=== PATIENT | male | born 1990 | race Caucasian/White ===

== ENCOUNTER 2017-02-22 11:20 | Emergency (ER) | payer OTHER ==
[~2017-02-22 11:20] MED LIST: ADDERALL PO; ASPIRIN81 MG PO; CLEOCIN HCL300 M1 PO; HUMALOG100 U/M2 SUBQ; HUMALOG100 U/ML SUBQ; LANTUS SOLOSTAR3 ML SUBQ; LANTUS100 U/ML SQ; LANTUS100 U/ML SUBQ; LANTUS100 UNITS/ SUBQ; LISINOPRIL10 MG PO; MAG-OXIDE400 MG PO; ZESTRIL2.5 MG PO; ZOFRAN ODT4 MG PO; [UNRECOGNIZED DRUG - OTHER]
[2017-02-22 12:22] LABS: ARTERIAL BLD GAS O2 SATURATION 77.8 % (90.0-100.0); ARTERIAL BLOOD GAS CARBOXY HB 1.1 %sat (0.0-9.0); ARTERIAL BLOOD GAS HCO3 20.1 mmol/L; ARTERIAL BLOOD GAS MET HB 0.7 %sat (0.0-2.0); ARTERIAL BLOOD GAS PCO2 35.1 mmHg (35.0-45.0); ARTERIAL BLOOD GAS pH 7.367 (7.350-7.450)
[2017-02-22 12:24] LABS: ARTERIAL BLOOD GAS PO2 39.2 mmHg (80.0-100); ARTERIAL DRAW? NO
[2017-02-22 12:37] LABS: BASOPHIL# 0.1 X10e3 (0-0.3); BASOPHIL% 1.2 % (0-2.5); EOSINOPHIL# 0.1 X10e3 (0-0.7); EOSINOPHIL% 0.8 % (0.0-7.0); HEMATOCRIT 48.9 % (38.0-50.0); HEMOGLOBIN 16.1 gm/dL (13.0-16.0); LYMPHOCYTE# 3.5 X10e3 (1.0-3.5); LYMPHOCYTE% 35.6 % (17.0-45.0); MEAN CELL VOLUME 86.3 FL (83-96); MEAN CORPUSCULAR HEMOGLOBIN 28.4 PG (28-34); MEAN CORPUSCULAR HGB CONC 32.9 g/dL (30-36); MEAN PLATELET VOLUME 10.5 FL (6.5-11.5); MONOCYTE# 0.9 X10e3 (0-1.0); MONOCYTE% 9.1 % (3.0-12.0); NEUTROPHIL# 5.2 X10e3 (1.5-7.1); NEUTROPHIL% 53.3 % (40-75); PLATELET COUNT 256 X10e3 (140-420); RED BLOOD COUNT 5.67 X10e (3.90-5.60); RED CELL DISTRIBUTION WIDTH 13.5 % (11.0-15.5); WHITE BLOOD COUNT 9.8 X10e3 (4.0-10.5)
[2017-02-22 12:40] LABS: DIFF IND NO
[2017-02-22 13:10] LABS: ALBUMIN SERUM 4.7 g/dL (3.5-5.0); BETA HYDROXYBUTYRATE 2.58 MMOL/L (0.02-0.27); BILIRUBIN, DIRECT 0.2 mg/dL (0.0-0.2); BILIRUBIN,TOTAL 2.2 mg/dL (0.2-2.0); CALCIUM SERUM 9.9 mg/dL (8.4-10.2); CREATININE SERUM 0.8 mg/dL (0.6-1.4); GLOM FILT RATE Estimated 125.1 mL/min (>60); PROTEIN TOTAL SERUM 7.9 g/dL (6.0-8.3)
[2017-02-22 14:48] LABS: URINE SOURCE CLEAN CATCH
[2017-02-22 14:56] LABS: URINE APPEARANCE CLEAR; URINE BILIRUBIN NEG (NEG); URINE BLOOD NEG (NEG); URINE COLOR YELLOW; URINE GLUCOSE >1000 MG/DL (NEG); URINE KETONE 3+ (NEG); URINE LEUKOCYTE ESTERASE NEG (NEG); URINE NITRATE NEG (NEG); URINE PROTEIN NEG (NEG); URINE SPECIFIC GRAVITY 1.032 (1.003-1.035)
[2017-02-22 15:03] LABS: CULTURE INDICATED? NO
== END 2017-02-22 15:40 | disposition home or self-care (01) ==
LOC: CED 11:20
PROVIDERS: Emergency Medicine
DX: R11.2 Nausea with vomiting, unspecified (principal); E11.65 Type 2 diabetes mellitus with hyperglycemia; G43.909 Migraine, unspecified, not intractable, without status migrainosus; F90.9 Attention-deficit hyperactivity disorder, unspecified type; Z88.0 Allergy status to penicillin
CPT/HCPCS: 36415; 80048; 80076; 81003; 82010; 82803; 82947; 85025; 87040; 96361; 96374; 99284; J2405